=== PATIENT | female | born 1950 | race Caucasian/White ===

== ENCOUNTER 2017-03-21 17:43 | Inpatient (IN) | payer MEDICARE ==
[~2017-03-21] VITALS: Ht 177.8 cm; Wt 67.3 kg
[2017-03-21] MEDS ORDERED: IV NORMAL SALINE 1,000ML 1,000 ML IV ONE (19:00)
[2017-03-21] MEDS ORDERED: 0.9 % SODIUM CHLORIDE 10 ML DISP.SYRIN. IV PRN (19:00)
[2017-03-21 19:51] LABS: BASO # 0.1 x10^3/uL (0.0-0.2); BASO % 1 % (0-3); EOS % 0 % (0-3); HEMOGLOBIN 17.2 g/dL (12.0-15.5); LYMPH # 2.6 x10^3/uL (1.0-4.8); LYMPH % 24 % (24-48); MEAN CORPUSCULAR HEMOGLOBIN 29 pg (25-35); MEAN CORPUSCULAR HGB CONC 32 g/dL (31-37); MEAN CORPUSCULAR VOLUME 88 fL (79-100); MONO # 0.7 x10^3/uL (0.0-1.1); MONO % 6 % (0-9); NEUT # 7.8 x10^3uL (1.8-7.7); NEUT % 69 % (31-73); PLATELET COUNT 268 x10^3/uL (140-400); RED BLOOD COUNT 6.03 x10^6/uL (3.50-5.40); RED CELL DISTRIBUTION WIDTH 13.8 % (11.5-14.5); WHITE BLOOD COUNT 11.2 x10^3/uL (4.0-11.0)
[2017-03-21 19:56] LABS: ALBUMIN 3.6 g/dL (3.4-5.0); ALBUMIN/GLOBULIN RATIO 0.7 (1.0-1.7); CALCIUM 10.1 mg/dL (8.5-10.1); CREATININE 1.4 mg/dL (0.6-1.0); GFR 37.9; POTASSIUM 3.7 mmol/L (3.5-5.1); TOTAL BILIRUBIN 0.5 mg/dL (0.2-1.0); TOTAL PROTEIN 8.6 g/dL (6.4-8.2)
[2017-03-21] MEDS ORDERED: IV NORMAL SALINE 50ML 50 ML ONE (20:20)
[2017-03-21] MEDS ORDERED: cefTRIAXone SODIUM 1 GM VIAL IV ONE (20:20)
[2017-03-21] MEDS ORDERED: IV NORMAL SALINE 500ML 500 ML ONE (20:28)
[2017-03-21 20:30] LABS: BILIRUBIN,URINE NEG (NEG); CLARITY,URINE CLEAR; COLOR,URINE YELLOW; GLUCOSE,URINE 100 mg/dL (NEG); NITRITE,URINE NEG (NEG); UROBILINOGEN,URINE 1 mg/dL (0.2 mg/dL)
[2017-03-21 20:31] LABS: AMORPHOUS SEDIMENT,UR PRESENT /HPF; BACTERIA,URINE 0 /HPF (0-FEW); HYALINE CASTS, URINE OCC /HPF; RBC,URINE 0 /HPF (0-2); WBC,URINE OCC /HPF (0-4)
[2017-03-21] MEDS ORDERED: ONDANSETRON PF 4 MG/2 ML VIAL. IV PRN (22:30)
[2017-03-21 23:50] VITALS: BP 156/110
--- NOTE | 2017-03-22 01:09 | PHYS DOC ---
Past History Past Medical History: CVA, Dementia, Depression, Diabetes, High Cholesterol, Hypertension, Other Past Surgical History: Hysterectomy, Other Alcohol Use: None Drug Use: None Adult General Chief Complaint Chief Complaint: NEURO SYMPTOMS/DEFICITS HPI HPI Roula's history is limited due to cognitive impairment status post CVA as well as current local condition. Her history mostly comes from her son and daughter- in-law. She lives with her son and frlkhoey-kv-dnl. Her chekoyja-rs-vbm is the primary caregiver. Her daughter is the DPOA Patient is a 66 year old F who presents with decreased verbal responsiveness as well as generalized weakness starting last night. The biggest reason she came to the emergency room tonight is that she was unable to stand and has not been verbally responsive since last night which is a change from her baseline. She was recently treated for urinary tract infection however she has finished her antibiotics. Her [id number] states that she has been urinating frequently. Her son states that she has had no other associated symptoms. She did have improvement in her verbal responsiveness, returning back to baseline according to her son, without any intervention. Review of Systems Review of Systems Constitutional: Denies fever or chills [] Eyes: Denies change in visual acuity, redness, or eye pain [] HENT: Denies nasal congestion or sore throat [] Respiratory: Denies cough or shortness of breath [] Cardiovascular: No additional information not addressed in HPI [] GI: Denies abdominal pain, nausea, vomiting, bloody stools or diarrhea [] : Denies dysuria or hematuria [] Musculoskeletal: Denies back pain or joint pain [] Integument: Denies rash or skin lesions [] Neurologic: Denies headache, focal weakness or sensory changes [] Endocrine: Denies polyuria or polydipsia [] Roula did answer most questions with yes or no or head nods. It's unclear how accurate this review of systems was given her cognitive impairment and current condition. Family History Family History Noncontributory Current Medications Current Medications Current Medications Medications (Trade) Dose Ordered Sig/Zafar Start Time Stop Time Status Last Admin Dose Admin Ceftriaxone Sodium 1 gm/ Sodium Chloride 50 ml @ 100 mls/hr 1X ONCE 03/21/17 20:15 03/21/17 20:44 DC 03/21/17 20:15 100 MLS/HR Ceftriaxone Sodium (Rocephin) 1 gm STK-MED ONCE 03/21/17 20:20 03/21/17 20:21 DC Sodium Chloride 500 ml @ As Directed STK-MED ONCE 03/21/17 20:28 03/21/17 20:29 DC Sodium Chloride (Normal Saline Flush) 10 ml QSHIFT PRN 03/21/17 19:00 Allergies Allergies Allergies Coded Allergies Type Severity Reaction Last Updated Verified No Known Drug Allergies 03/21/17 No Physical Exam Physical Exam Constitutional: Well developed, well nourished, no acute distress, non-toxic appearance. [] HENT: atraumatic, bilateral external ears normal, dry mucous membranes Eyes: PERRLA, conjunctiva normal, no discharge. [] Neck: Normal range of motion, no tenderness, supple, no stridor. [] Cardiovascular:Heart rate regular rhythm, Lungs & Thorax: Bilateral breath sounds clear to auscultation [] Abdomen: Bowel sounds normal, soft, no tenderness, no masses, no pulsatile masses. [] Skin: Warm, dry, no erythema, no rash. [] Back: No tenderness, no CVA tenderness. [] Extremities: No tenderness, no cyanosis, no clubbing, ROM intact, no edema. [] Neurologic: Exam was limited due to cognitive impairment. She was unable to stand or lift either leg however she was noted to be moving all extremities during her evaluation. She was able to sit up with minimal assistance however she was not able to sit up for longer than a few seconds to a minute. It's unclear if her sensation is normal as her responses aren't consistent. She was alert but not oriented Psychologic: Limited due to cognitive impairment and current medical condition Current Patient Data Vital Signs Vital Signs Date Time Temp Pulse Resp B/P (MAP) Pulse Ox O2 Delivery O2 Flow Rate FiO2 03/21/17 17:43 98.2 112 10 96 Room Air Lab Results Laboratory Tests Test 03/21/17 19:00 03/21/17 23:58 White Blood Count 11.2 x10^3/uL (4.0-11.0) H Red Blood Count 6.03 x10^6/uL (3.50-5.40) H Hemoglobin 17.2 g/dL (12.0-15.5) H Hematocrit 53.0 % (36.0-47.0) H Mean Corpuscular Volume 88 fL (79-100) Mean Corpuscular Hemoglobin 29 pg (25-35) Mean Corpuscular Hemoglobin Concent 32 g/dL (31-37) Red Cell Distribution Width 13.8 % (11.5-14.5) Platelet Count 268 x10^3/uL (140-400) Neutrophils (%) (Auto) 69 % (31-73) Lymphocytes (%) (Auto) 24 % (24-48) Monocytes (%) (Auto) 6 % (0-9) Eosinophils (%) (Auto) 0 % (0-3) Basophils (%) (Auto) 1 % (0-3) Neutrophils # (Auto) 7.8 x10^3uL (1.8-7.7) H Lymphocytes # (Auto) 2.6 x10^3/uL (1.0-4.8) Monocytes # (Auto) 0.7 x10^3/uL (0.0-1.1) Eosinophils # (Auto) 0.0 x10^3/uL (0.0-0.7) Basophils # (Auto) 0.1 x10^3/uL (0.0-0.2) Urine Collection Type U cath Urine Color Yellow Urine Clarity Clear Urine pH 5.0 Urine Specific [place] 1.025 Urine Protein 100 mg/dl (NEG-TRACE) Urine Glucose (UA) 100 mg/dL (NEG) Urine Ketones (Stick) Neg mg/dL (NEG) Urine Blood Neg (NEG) Urine Nitrite Neg (NEG) Urine Bilirubin Neg (NEG) Urine Urobilinogen Dipstick 1 mg/dL (0.2 mg/dL) Urine Leukocyte Esterase Neg (NEG) Urine RBC 0 /HPF (0-2) Urine WBC Occ /HPF (0-4) Urine Squamous Epithelial Cells None /LPF Urine Amorphous Sediment Present /HPF Urine Bacteria 0 /HPF (0-FEW) Urine Hyaline Casts Occ /HPF Sodium Level 146 mmol/L (136-145) H Potassium Level 3.7 mmol/L (3.5-5.1) Chloride Level 107 mmol/L (98-107) Carbon Dioxide Level 30 mmol/L (21-32) Anion Gap 9 (6-14) Blood Urea Nitrogen 30 mg/dL (7-20) H Creatinine 1.4 mg/dL (0.6-1.0) H Estimated GFR (Cockcroft-Gault) 37.9 BUN/Creatinine Ratio 21 (6-20) H Glucose Level 311 mg/dL (70-99) H Lactic Acid Level 2.2 mmol/L (0.4-2.0) H Calcium Level 10.1 mg/dL (8.5-10.1) Total Bilirubin 0.5 mg/dL (0.2-1.0) Aspartate Amino Transferase (AST) 18 U/L (15-37) Alanine Aminotransferase (ALT) 20 U/L (14-59) Alkaline Phosphatase 74 U/L (46-116) Total Protein 8.6 g/dL (6.4-8.2) H Albumin 3.6 g/dL (3.4-5.0) Albumin/Globulin Ratio 0.7 (1.0-1.7) L Glucose (Fingerstick) 190 mg/dL (70-99) H EKG EKG [] Radiology/Procedures Radiology/Procedures [] Course & Med Decision Making Course & Med Decision Making Pertinent Labs and Imaging studies reviewed. (See chart for details) Based on her heart rate, elevated lactic acid and elevated white blood cell count she was given a dose of Rocephin prior to the results of her urinalysis for presumed urinary tract infection. Blood cultures were obtained and are pending. Dr. Palcaio was contacted by phone and did accept her care for inpatient management. Dragon Disclaimer Dragon Disclaimer This chart was dictated in whole or in part using Voice Recognition software in a busy, high-work load, and often noisy Emergency Department environment. It may contain unintended and wholly unrecognized errors or omissions. Departure Departure: Impression: Primary Impression: Dehydration Additional Impression: Acute kidney injury Disposition: 09 ADMITTED INPATIENT Condition: STABLE Referrals: KAYLAH ROBERTSON MD (PCP) Problem Qualifiers KAYLAH NASH MD Mar 22, 2017 01:09
[2017-03-22] MEDS ORDERED: PNEUMOCOCCAL VAX SCREEN. MC ONE (01:30)
[2017-03-22] MEDS ORDERED: ATOR40TA59 PO (02:03)
[2017-03-22] MEDS ORDERED: HUM100VI5 SQ (02:03)
[2017-03-22] MEDS ORDERED: PARO20TA3 PO (02:03)
[2017-03-22] MEDS ORDERED: CLON0.1T PO (02:03)
[2017-03-22] MEDS ORDERED: DONE10TA7 PO (02:03)
[2017-03-22] MEDS ORDERED: ACYC400T PO (02:03)
[2017-03-22] MEDS ORDERED: AMLO10TA2 PO (02:03)
[2017-03-22 05:00] VITALS: BP 154/100
[2017-03-22 06:46] LABS: BASO # 0.1 x10^3/uL (0.0-0.2); BASO % 1 % (0-3); EOS # 0.1 x10^3/uL (0.0-0.7); EOS % 1 % (0-3); HEMATOCRIT 45.4 % (36.0-47.0); HEMOGLOBIN 14.7 g/dL (12.0-15.5); LYMPH # 3.7 x10^3/uL (1.0-4.8); LYMPH % 33 % (24-48); MEAN CORPUSCULAR HEMOGLOBIN 29 pg (25-35); MEAN CORPUSCULAR HGB CONC 32 g/dL (31-37); MEAN CORPUSCULAR VOLUME 88 fL (79-100); MONO # 0.7 x10^3/uL (0.0-1.1); MONO % 6 % (0-9); NEUT # 6.7 x10^3uL (1.8-7.7); NEUT % 60 % (31-73); PLATELET COUNT 213 x10^3/uL (140-400); RED BLOOD COUNT 5.14 x10^6/uL (3.50-5.40); WHITE BLOOD COUNT 11.2 x10^3/uL (4.0-11.0)
[2017-03-22 07:04] LABS: CALCIUM 9.1 mg/dL (8.5-10.1); CREATININE 1.1 mg/dL (0.6-1.0); POTASSIUM 3.4 mmol/L (3.5-5.1)
[2017-03-22] MEDS ORDERED: INSU300I SQ (07:05)
--- NOTE | 2017-03-22 08:21 | RAD ---
Examination: Single frontal view the chest History: History of cough Comparison: None available Findings: The cardiomediastinal silhouette grossly appears unremarkable. There is no acute infiltrate or visualized pneumothorax. Impression: No acute cardiopulmonary findings.
[2017-03-22] MEDS ORDERED: PNEUMOC CONJ VACC 23-VALENT 0.5 ML VIAL. VAX IM ONE (09:00)
[2017-03-22] MEDS ORDERED: cloNIDine HCL 0.1 MG TABLET PO PRN (09:45)
[2017-03-22 10:47] VITALS: BP 119/81
[2017-03-22] MEDS: amLODIPine BESYLATE 10 MG TABLET PO SCH (10:48)
[2017-03-22] MEDS: PARoxetine 20 MG TABLET PO SCH (10:49)
[2017-03-22] MEDS: POTASSIUM CHLORIDE 30 MEQ in IV 1/2 NORMAL SALINE 1,000 ML IV SCH ×2 (10:49→23:32)
[2017-03-22] MEDS ORDERED: INSULN ASP PRT/INSULIN ASPART 300 UNITS/3 ML INSULN.PEN. SQ SCH (11:30)
[2017-03-22] MEDS ORDERED: FLU VACC QS2017-18 (36MOS+)/PF 0.5 ML SYRINGE. VAX IM ONE (13:00)
[2017-03-22] MEDS ORDERED: ACETAMINOPHEN 500 MG TABLET PO PRN (16:45)
[2017-03-22] MEDS: INSULN ASP PRT/INSULIN ASPART 300 UNITS/3 ML INSULN.PEN. SQ SCH (16:59)
--- NOTE | 2017-03-22 18:32 | RAD ---
CT brain without contrast. HISTORY: History of stroke, concern for CVA CT scan of brain was done without contrast. There is no intracranial hemorrhage or subdural hematoma. Ventricles are mildly dilated. There is extensive decreased density in the periventricular white matter possibly chronic microvascular disease. A focal CVA is not identified. MRI could be of benefit. There is no mass or shift of the midline. There is some mucosal thickening in the left maxillary sinus. IMPRESSION: 1. Extensive decreased density in the white matter. 2. No intracranial hemorrhage or mass noted. 3. A CVA is not identified. 4. Mild ventricular dilatation. PQRS Compliance Statement: One or more of the following individualized dose reduction techniques were utilized for this examination: 1. Automated exposure control 2. Adjustment of the mA and/or kV according to patient size 3. Use of iterative reconstruction technique Electronically signed by: Wesley Baez MD (03/22/2017 6:28 PM) [facility]
--- NOTE | 2017-03-22 19:04 | HP ---
ADMIT DATE: 03/21/2017 HISTORY OF PRESENT ILLNESS: A 66-year-old female. She has had a history of stroke. The patient basically has decreased verbal responsiveness as well as generalized weakness. The patient not eating or drinking very well, although there is some indication she might have been on increased fluids, but her labs look like she is very dehydrated in terms of her elevated concentration of red blood cells. The patient has become more lethargic and more unresponsive here in the last week or so. PAST MEDICAL HISTORY: CVA, dementia, depression, diabetes, hypercholesterolemia, hypertension, subaortic membrane heart murmur, requires bacterial endocarditis prophylaxis, other CVAs in October 2014. ALLERGIES: BYETTA. PAST SURGICAL HISTORY: The patient has had tubal ligation, carpal tunnel, and removed three knuckles from her right hand for arthritis. FAMILY HISTORY: Father , unknown causes. Mother with heart disease and diabetes. She has brothers and sisters with cancer, lymphoma. SOCIAL HISTORY: There is no history of smoking, alcohol, or drug use. The patient unable to give a history REVIEW OF SYSTEMS: As noted there. PHYSICAL EXAMINATION: GENERAL: This is a white female looking much older than stated age, who is markedly weakened, decrepit. VITAL SIGNS: Blood pressure 120/80, respiratory rate 20, pulse 93, afebrile. HEENT: The patient's head was atraumatic, normocephalic. Poor dentition noted. Eyes were PERRLA. NEUROLOGIC: EOMI. Poor response to questions. NECK: Supple without JVD or carotid bruits. LUNGS: Diminished throughout, poor movement of air. CARDIOVASCULAR: Regular sinus rhythm, S1, S2. ABDOMEN: Soft, nontender. EXTREMITIES: No clubbing, cyanosis, or edema. NEUROLOGIC: The patient is alert but not oriented to place, self, or time. LABORATORY DATA: Labs initially showed white count of 11, hemoglobin of 17. A day later, hemoglobin has come down from 17 to 14. Creatinine has come down from 1.4 to 1.1 and BUN from 30 down to 26. Sodium 146, potassium slightly low at 3.4, blood sugars in the 190s-200s. Did have a positive lactic acid of 2.2. Received Rocephin 1 g IV. Urine negative. Chest x-ray negative. No obvious signs of infection. We will continue with the IV Rocephin now. IMPRESSION: Change in mental status, possible encephalopathy secondary to diabetes, marked lethargy, type 2 diabetes, dehydration, and acute renal failure. Continue with hydration. CT scan scheduled. Start PT/OT and make further evaluation along those lines. KAYLAH ROBERTSON MD DR: ALECIA/yuriy JOB#: [id number] / [id number]
[2017-03-22 19:22] VITALS: BP 117/79
[2017-03-22] MEDS: DONEPEZIL HCL 10 MG TABLET PO SCH (20:17)
[2017-03-22] MEDS: INSULIN DETEMIR 300 UNITS/3 ML INSULN.PEN. SQ SCH (20:26)
[2017-03-22 23:16] VITALS: BP 147/68
[2017-03-23 04:55] VITALS: BP 147/68
[2017-03-23 07:08] LABS: BASO % 0 % (0-3); EOS # 0.2 x10^3/uL (0.0-0.7); EOS % 1 % (0-3); HEMATOCRIT 39.2 % (36.0-47.0); LYMPH # 4.1 x10^3/uL (1.0-4.8); LYMPH % 36 % (24-48); MEAN CORPUSCULAR HEMOGLOBIN 29 pg (25-35); MEAN CORPUSCULAR HGB CONC 33 g/dL (31-37); MEAN CORPUSCULAR VOLUME 87 fL (79-100); MONO # 0.6 x10^3/uL (0.0-1.1); MONO % 6 % (0-9); NEUT # 6.4 x10^3uL (1.8-7.7); NEUT % 57 % (31-73); PLATELET COUNT 194 x10^3/uL (140-400); RED BLOOD COUNT 4.53 x10^6/uL (3.50-5.40); RED CELL DISTRIBUTION WIDTH 13.2 % (11.5-14.5); WHITE BLOOD COUNT 11.4 x10^3/uL (4.0-11.0)
[2017-03-23 07:19] LABS: CALCIUM 8.6 mg/dL (8.5-10.1); CREATININE 0.8 mg/dL (0.6-1.0); GFR 72.2
[2017-03-23] MEDS: PARoxetine 20 MG TABLET PO SCH (09:00)
[2017-03-23] MEDS: amLODIPine BESYLATE 10 MG TABLET PO SCH (09:00)
[2017-03-23] MEDS ORDERED: ACETAMINOPHEN 325 MG TABLET PO PRN (09:15)
[2017-03-23 10:34] VITALS: BP 113/84
[2017-03-23] MEDS: POTASSIUM CHLORIDE 20 MEQ TABLET.ER. PO SCH ×2 (12:22→17:24)
[2017-03-23] MEDS: INSULN ASP PRT/INSULIN ASPART 300 UNITS/3 ML INSULN.PEN. SQ SCH ×2 (12:26→16:30)
[2017-03-23 15:17] VITALS: BP 136/74
[2017-03-23] MEDS: INSULIN DETEMIR 300 UNITS/3 ML INSULN.PEN. SQ SCH (17:26)
[2017-03-23 19:24] VITALS: BP 129/86
[2017-03-23] MEDS: DONEPEZIL HCL 10 MG TABLET PO SCH (20:38)
[2017-03-23] MEDS: LACTOBACILLUS ACIDOPH & BULGAR 1 TABLET. PO SCH (20:38)
[2017-03-23 22:29] VITALS: BP 148/94
[2017-03-24 05:57] VITALS: BP 123/87
[2017-03-24] MEDS: POTASSIUM CHLORIDE 20 MEQ TABLET.ER. PO SCH ×2 (08:16→17:52)
[2017-03-24] MEDS: PARoxetine 20 MG TABLET PO SCH (08:16)
[2017-03-24] MEDS: LACTOBACILLUS ACIDOPH & BULGAR 1 TABLET. PO SCH ×2 (08:16→21:39)
[2017-03-24] MEDS: amLODIPine BESYLATE 10 MG TABLET PO SCH (08:17)
[2017-03-24 10:33] VITALS: BP 109/77
[2017-03-24] MEDS ORDERED: DEXTROSE 50% 25 GM / 50ML DISP.SYRIN. IV PRN (10:45)
[2017-03-24] MEDS: INSULIN ASPART 300 UNITS/3 ML INSULN.PEN SQ SCH ×3 (12:34→21:46)
[2017-03-24] MEDS: INSULN ASP PRT/INSULIN ASPART 300 UNITS/3 ML INSULN.PEN. SQ SCH ×2 (12:35→17:47)
[2017-03-24 15:10] VITALS: BP 106/73
[2017-03-24] MEDS ORDERED: INSULIN ASPART 300 UNITS/3 ML INSULN.PEN SQ ONE (17:45)
[2017-03-24 19:46] VITALS: BP 101/53
[2017-03-24] MEDS: DONEPEZIL HCL 10 MG TABLET PO SCH (21:39)
[2017-03-24] MEDS: INSULIN DETEMIR 300 UNITS/3 ML INSULN.PEN. SQ SCH (21:46)
[2017-03-24 23:51] VITALS: BP 111/72
--- NOTE | 2017-03-25 01:38 | PN ---
DATE: A 66-year-old female in with change in mental status. The patient is resting fairly comfortably making fairly good progress. Seems to be a little bit more alert, but still very confused and does not seem to be making much sense, but this may be baseline for her. The patient otherwise showed hemoglobin from 17 down to 13 showing significant degree of dehydration. We have adjusted her sliding scale to bring her sugars down as well. Blood pressure 110/70, respiratory rate 20, pulse 70 to 90. The patient is alert, but confused, not able to answer questions very well overall. Otherwise, the patient seems to be making good progress as far as her baseline goes and will continue to be monitored on this. Continue with PT, OT. Family to decide where they want her taken after hospitalization as the patient obviously is in no situation to take care of herself. IMPRESSION: Change in mental status, Alzheimer disease. KAYLAH ROBERTSON MD DR: ALECIA/yuriy JOB#: [id number] / [id number]
[2017-03-25 05:09] VITALS: BP 122/88
[2017-03-25] MEDS: INSULIN ASPART 300 UNITS/3 ML INSULN.PEN SQ SCH ×4 (07:30→20:38)
[2017-03-25] MEDS: amLODIPine BESYLATE 10 MG TABLET PO SCH (09:00)
[2017-03-25] MEDS: POTASSIUM CHLORIDE 20 MEQ TABLET.ER. PO SCH ×2 (09:00→17:19)
[2017-03-25] MEDS: LACTOBACILLUS ACIDOPH & BULGAR 1 TABLET. PO SCH ×2 (09:00→20:37)
[2017-03-25] MEDS: PARoxetine 20 MG TABLET PO SCH (09:00)
[2017-03-25 10:55] VITALS: BP 115/77
[2017-03-25] MEDS: INSULN ASP PRT/INSULIN ASPART 300 UNITS/3 ML INSULN.PEN. SQ SCH ×2 (12:28→17:17)
[2017-03-25] MEDS ORDERED: INSULIN ASPART 300 UNITS/3 ML INSULN.PEN SQ ONE (12:30)
[2017-03-25 15:22] VITALS: BP 112/79
[2017-03-25 19:52] VITALS: BP 104/72
[2017-03-25] MEDS: DONEPEZIL HCL 10 MG TABLET PO SCH (20:37)
[2017-03-25] MEDS: INSULIN DETEMIR 300 UNITS/3 ML INSULN.PEN. SQ SCH (20:39)
[2017-03-25 23:07] VITALS: BP 113/77
[2017-03-26 06:13] VITALS: BP 123/88
[2017-03-26 06:42] LABS: BASO % 0 % (0-3); EOS # 0.1 x10^3/uL (0.0-0.7); EOS % 1 % (0-3); HEMATOCRIT 43.5 % (36.0-47.0); HEMOGLOBIN 14.6 g/dL (12.0-15.5); LYMPH # 4.1 x10^3/uL (1.0-4.8); LYMPH % 32 % (24-48); MEAN CORPUSCULAR HEMOGLOBIN 29 pg (25-35); MEAN CORPUSCULAR HGB CONC 34 g/dL (31-37); MEAN CORPUSCULAR VOLUME 86 fL (79-100); MONO % 8 % (0-9); NEUT # 7.3 x10^3uL (1.8-7.7); NEUT % 58 % (31-73); PLATELET COUNT 243 x10^3/uL (140-400); RED BLOOD COUNT 5.04 x10^6/uL (3.50-5.40); RED CELL DISTRIBUTION WIDTH 13.6 % (11.5-14.5); WHITE BLOOD COUNT 12.6 x10^3/uL (4.0-11.0)
[2017-03-26 06:51] LABS: CREATININE 0.9 mg/dL (0.6-1.0); POTASSIUM 4.1 mmol/L (3.5-5.1)
[2017-03-26] MEDS: INSULIN ASPART 300 UNITS/3 ML INSULN.PEN SQ SCH (07:30)
[2017-03-26] MEDS ORDERED: ACET325T9 PO (07:53)
[2017-03-26] MEDS ORDERED: INSU100I17 SQ (07:53)
[2017-03-26] MEDS ORDERED: ACID1TAB14 PO (07:53)
[2017-03-26] MEDS ORDERED: POTA20TA4 PO (07:53)
[2017-03-26 07:54] VITALS: BP 123/88
[2017-03-26] MEDS: POTASSIUM CHLORIDE 20 MEQ TABLET.ER. PO SCH (07:54)
[2017-03-26] MEDS: amLODIPine BESYLATE 10 MG TABLET PO SCH (07:54)
[2017-03-26] MEDS: LACTOBACILLUS ACIDOPH & BULGAR 1 TABLET. PO SCH (07:55)
[2017-03-26] MEDS: PARoxetine 20 MG TABLET PO SCH (07:55)
--- NOTE | 2017-03-26 12:11 | DS ---
DATE OF DISCHARGE: 03/26/2017 INDICATIONS: The patient is a 66-year-old female in with multiple medical problems, apparently family is still trying to decide what to do with her. The patient has change in mental status, markedly confused, disoriented. The patient otherwise seems to be resting fairly comfortably and will make further evaluation on her as indicated, trying to get her transferred either to a nursing facility or further evaluation on her as indicated. PHYSICAL EXAMINATION: VITAL SIGNS: The patient's blood pressure 120/80, respiration 16, pulse 70 up to 123, afebrile. The patient is a DNR. LUNGS: Clear. CARDIOVASCULAR: Regular sinus rhythm/ ABDOMEN: Soft, diffuse tenderness, no rebound or guarding. Positive bowel sounds, no hepatosplenomegaly noted. EXTREMITIES: No clubbing, cyanosis, or edema. NEUROLOGIC: The patient is confused. She is alert, but markedly confused and disoriented. IMPRESSION: Change in mental status, Alzheimer disease, failure to thrive. KAYLAH ROBERTSON MD DR: ALECIA/yuriy JOB#: [id number] / [id number]
--- NOTE | 2017-03-26 22:38 | DS ---
DATE OF DISCHARGE: 03/26/2017 HOSPITAL COURSE: The patient is a 66-year-old female came in with change in mental status, resting fairly comfortable. The patient is alert, but markedly confused, paucity of words, not really able to answer questions or follow commands. The patient does make good eye contact, but other than that, the patient has to be fed. She lies pretty much in bed. ( ) ADLs. blood pressure 120/88, respiratory rate 20, pulse 100, afebrile. The patient is alert but as noted above. Just tracks with her eyes, but really does not have much to say. Lungs are diminished but clear. CV exam is stable. The patient will be discharged to a nursing facility today. IMPRESSION: Change in mental status, dehydration, type 2 diabetes. PLAN: As above, to be discharged to [facility]. See MRAD. ACTIVITY: As tolerated. DIET: As tolerated as well. KAYLAH ROBERTSON MD DR: ALECIA/yuriy JOB#: [id number] / [id number]
== END 2017-03-26 10:17 | DRG 684 ==
LOC: ER 17:43 → 1 SOUTH 21:20
PROVIDERS: ADMIT Family Medicine; ATTEND Family Medicine
DX: N17.9 Acute kidney failure, unspecified (principal); G30.9 Alzheimer's disease, unspecified; F02.80 Dementia in other diseases classified elsewhere, unspecified severity, without behavioral disturbance, psychotic disturbance, mood disturbance, and anxiety; E11.9 Type 2 diabetes mellitus without complications; E86.0 Dehydration; F32.9 Major depressive disorder, single episode, unspecified; M19.90 Unspecified osteoarthritis, unspecified site; I10 Essential (primary) hypertension; E78.00 Pure hypercholesterolemia, unspecified; R62.7 Adult failure to thrive; Z66 Do not resuscitate; I69.319 Unspecified symptoms and signs involving cognitive functions following cerebral infarction; Z80.7 Family history of other malignant neoplasms of lymphoid, hematopoietic and related tissues; Z82.49 Family history of ischemic heart disease and other diseases of the circulatory system; Z83.3 Family history of diabetes mellitus; Z87.440 Personal history of urinary (tract) infections; Z90.710 Acquired absence of both cervix and uterus; Z98.51 Tubal ligation status
CPT/HCPCS: 36415; 51701; 70450; 71010; 80048; 80053; 81001; 82607; 82947; 83605; 84443; 85025; 87040; 90686; 90732; 96361; 96365; 96366; 97163; J0696; J1815; J7030; 97110; 97112; 97116; 97530; 99285-25

== ENCOUNTER 2017-08-25 21:34 | Inpatient (IN) | payer MEDICARE ==
[~2017-08-25] VITALS: Ht 167.6 cm; Wt 71.2 kg
[~2017-08-25 21:34] MED LIST: ACET325T9 PO; ACID1TAB14 PO; ACYC400T PO; AMLO10TA2 PO; ATOR40TA59 PO; CLON0.1T PO; DONE10TA7 PO; HUM100VI5 SQ; INSU100I17 SQ; INSU300I SQ; PARO20TA3 PO; POTA20TA4 PO
--- NOTE | 2017-08-25 23:21 | RAD ---
CT head without contrast COMPARISON: CT head March 22, 2017. HISTORY: Trauma, confusion, lethargy. TECHNIQUE: [address] imaging skull base to vertex was acquired. FINDINGS: Generalized brain atrophy is stable. Extensive cerebral white matter hypoattenuation is stable likely changes of chronic microvascular ischemic disease. No intracranial hemorrhage, mass, hydrocephalus or infarction. No acute ischemic changes evident. Orbits, mastoids, paranasal sinuses and bones are unremarkable. IMPRESSION: No acute intracranial CT abnormality. Stable exam. Exposure: One or more of the following individualized dose reduction techniques were utilized for this examination: 1. Automated exposure control 2. Adjustment of the mA and/or kV according to patient size 3. Use of iterative reconstruction technique Electronically signed by: Odell Pastrana MD (08/25/2017 11:18 PM) [facility]
--- NOTE | 2017-08-25 23:55 | ED.ADGEN ---
Past History Past Medical History: CVA, Dementia, Depression, Diabetes, High Cholesterol, Hypertension, Other Past Surgical History: Hysterectomy, Other Alcohol Use: None Drug Use: None Adult General Chief Complaint Chief Complaint unwitnessed fall HPI HPI Patient is a 67-year-old snf patient with history of dementia, CVA, hypertension who presents from snf facility with unwitnessed fall. There is no stated complaint or injury. However, the patient does not recall the cause of fall. On exam, patient is stable vital signs does not appear to be in any distress on ED arrival. History is limited due to the patient's memory impairment.[] Review of Systems Review of Systems Review symptoms limited due to the presence of dementia. All other systems were reviewed and found to be within normal limits, except as documented in this note. Current Medications Current Medications Current Medications Medications (Trade) Dose Ordered Sig/Zafar Start Time Stop Time Status Last Admin Dose Admin Sodium Chloride 1,000 ml @ 1,000 mls/hr 1X ONCE 08/26/17 00:45 08/26/17 01:44 UNV Allergies Allergies Allergies Coded Allergies Type Severity Reaction Last Updated Verified No Known Drug Allergies 03/21/17 No Physical Exam Physical Exam Constitutional:No acute distress, blank stare, flat affect. [] HENT: Normocephalic, atraumatic, bilateral external ears normal, oropharynx moist, no oral exudates, nose normal. [] Eyes: PERRLA, EOMI, conjunctiva normal. [] Neck: Normal range of motion, no bony tenderness. [] Cardiovascular:Heart rate regular rhythm, no murmur [] Lungs & Thorax: Bilateral breath sounds clear to auscultation [] Abdomen: Bowel sounds normal, soft, no tenderness. [] Skin: Warm, dry. [] Back: No tenderness. [] Extremities: Right shoulder pain, tenderness swelling, limited range of motion secondary to pain, no gross deformities of remaining right upper extremity, left upper extremity, bilateral extremities, no former days, no pain range of motion.[] Neurologic: Alert, no gross motor weakness[) Current Patient Data Lab Results Laboratory Tests Test 08/25/17 23:30 08/25/17 23:35 Urine Collection Type U cath Urine Color Yellow Urine Clarity Clear Urine pH 7.0 Urine Specific [place] 1.015 Urine Protein 100 mg/dl (NEG-TRACE) Urine Glucose (UA) 250 mg/dL (NEG) Urine Ketones (Stick) Neg mg/dL (NEG) Urine Blood Trace (NEG) Urine Nitrite Neg (NEG) Urine Bilirubin Neg (NEG) Urine Urobilinogen Dipstick 0.2 mg/dL (0.2 mg/dL) Urine Leukocyte Esterase Neg (NEG) Urine RBC 0 /HPF (0-2) Urine WBC Occ /HPF (0-4) Urine Squamous Epithelial Cells Occ /LPF Urine Bacteria Few /HPF (0-FEW) White Blood Count 22.8 x10^3/uL (4.0-11.0) H Red Blood Count 5.32 x10^6/uL (3.50-5.40) Hemoglobin 14.9 g/dL (12.0-15.5) Hematocrit 45.2 % (36.0-47.0) Mean Corpuscular Volume 85 fL (79-100) Mean Corpuscular Hemoglobin 28 pg (25-35) Mean Corpuscular Hemoglobin Concent 33 g/dL (31-37) Red Cell Distribution Width 13.8 % (11.5-14.5) Platelet Count 387 x10^3/uL (140-400) Neutrophils (%) (Auto) 75 % (31-73) H Lymphocytes (%) (Auto) 19 % (24-48) L Monocytes (%) (Auto) 6 % (0-9) Eosinophils (%) (Auto) 0 % (0-3) Basophils (%) (Auto) 0 % (0-3) Neutrophils # (Auto) 17.1 x10^3uL (1.8-7.7) H Lymphocytes # (Auto) 4.3 x10^3/uL (1.0-4.8) Monocytes # (Auto) 1.2 x10^3/uL (0.0-1.1) H Eosinophils # (Auto) 0.1 x10^3/uL (0.0-0.7) Basophils # (Auto) 0.1 x10^3/uL (0.0-0.2) Segmented Neutrophils % 73 % (35-66) H Band Neutrophils % 6 % (0-9) Lymphocytes % 16 % (24-48) L Monocytes % 5 % (0-10) Platelet Estimate Adequate (ADEQUATE) Sodium Level 138 mmol/L (136-145) Potassium Level 3.8 mmol/L (3.5-5.1) Chloride Level 96 mmol/L (98-107) L Carbon Dioxide Level 30 mmol/L (21-32) Anion Gap 12 (6-14) Blood Urea Nitrogen 26 mg/dL (7-20) H Creatinine 1.1 mg/dL (0.6-1.0) H Estimated GFR (Cockcroft-Gault) 49.8 BUN/Creatinine Ratio 24 (6-20) H Glucose Level 207 mg/dL (70-99) H Calcium Level 9.7 mg/dL (8.5-10.1) Total Bilirubin 0.2 mg/dL (0.2-1.0) Aspartate Amino Transferase (AST) 28 U/L (15-37) Alanine Aminotransferase (ALT) 38 U/L (14-59) Alkaline Phosphatase 129 U/L (46-116) H Total Protein 7.6 g/dL (6.4-8.2) Albumin 3.4 g/dL (3.4-5.0) Albumin/Globulin Ratio 0.8 (1.0-1.7) L EKG EKG [EKG: Sinus tach, rate 112, left atrial abnormality, left ventricular hypertrophy, inferior Q waves, no acute ST elevation, QTC 455. Interpretation by this physician.] Radiology/Procedures Radiology/Procedures [CT head: No acute renal injury per radiology report x-ray/right humerus/pelvis: Minimally displaced right humeral neck fracture Chest XR: Suspected aortic aneurysm, pulmonary vascular congestion, possible left lingular infiltrate on preliminary read] Course & Med Decision Making Course & Med Decision Making Pertinent Labs and Imaging studies reviewed. (See chart for details) [Unwitnessed fall with apparent right humeral neck fracture, non-operative. No other injury evident on exam. Lab work reviewed. Acute kidney and elevation of white count. No clinical course of infection, pressure sores, etc. Possible lingular infiltrate on CXR? Patient afebrile was stable vital signs. IV fluids given. Empiric abx given. Delay in staring medications given delay in obtaining labs and diagnostic Culture and serum lactate obtained. Will place and shoulder sling. I spoke with Dr. Silva who accepted care of the patient. Courtesy bridge orders provided.] Final Impression Final Impression 1. Right humeral neck fracture 2. Acute kidney injury 3. leukocytosis 4. Dementia Problems: Dragon Disclaimer Dragon Disclaimer This electronic medical record was generated, in whole or in part, using a voice recognition dictation system. TREVOR SULLIVAN DO Aug 25, 2017 23:55
[2017-08-26] VITALS (9 sets, daily range): BP systolic 125–183; BP diastolic 77–109
[2017-08-26 00:07] LABS: BASO # 0.1 x10^3/uL (0.0-0.2); BASO % 0 % (0-3); EOS # 0.1 x10^3/uL (0.0-0.7); EOS % 0 % (0-3); HEMATOCRIT 45.2 % (36.0-47.0); HEMOGLOBIN 14.9 g/dL (12.0-15.5); LYMPH # 4.3 x10^3/uL (1.0-4.8); LYMPH % 19 % (24-48); MEAN CORPUSCULAR HEMOGLOBIN 28 pg (25-35); MEAN CORPUSCULAR HGB CONC 33 g/dL (31-37); MEAN CORPUSCULAR VOLUME 85 fL (79-100); MONO # 1.2 x10^3/uL (0.0-1.1); MONO % 6 % (0-9); NEUT # 17.1 x10^3uL (1.8-7.7); NEUT % 75 % (31-73); PLATELET COUNT 387 x10^3/uL (140-400); RED BLOOD COUNT 5.32 x10^6/uL (3.50-5.40); RED CELL DISTRIBUTION WIDTH 13.8 % (11.5-14.5); WHITE BLOOD COUNT 22.8 x10^3/uL (4.0-11.0)
[2017-08-26 00:17] LABS: BACTERIA,URINE FEW /HPF (0-FEW); BILIRUBIN,URINE NEG (NEG); CLARITY,URINE CLEAR; COLOR,URINE YELLOW; GLUCOSE,URINE 250 mg/dL (NEG); NITRITE,URINE NEG (NEG); RBC,URINE 0 /HPF (0-2); SQUAMOUS EPITHELIAL CELL,UR OCC /LPF; UROBILINOGEN,URINE 0.2 mg/dL (0.2 mg/dL); WBC,URINE OCC /HPF (0-4)
[2017-08-26 00:19] LABS: ALBUMIN 3.4 g/dL (3.4-5.0); ALBUMIN/GLOBULIN RATIO 0.8 (1.0-1.7); CALCIUM 9.7 mg/dL (8.5-10.1); CREATININE 1.1 mg/dL (0.6-1.0); GFR 49.8; POTASSIUM 3.8 mmol/L (3.5-5.1); TOTAL BILIRUBIN 0.2 mg/dL (0.2-1.0); TOTAL PROTEIN 7.6 g/dL (6.4-8.2)
[2017-08-26 00:23] LABS: % BANDS 6 % (0-9); % LYMPHS 16 % (24-48); % MONOS 5 % (0-10); % SEGS 73 % (35-66); PLT ESTIMATE ADEQUATE (ADEQUATE)
--- NOTE | 2017-08-26 00:43 | EKG ---
[address] [address] Test Date: 2017-08-25 Test Time: 22:50:29 Pat Name: ZOE MARIE Department: Room: Gender: F Director Mobile: TRISTIN : 1950 Requested By: TREVOR SULLIVAN Order Number: [id number] Reading MD: Jimmie Ashraf MD Measurements Intervals [place] Rate: 112 P: 42 LA: 160 QRS: -19 QRSD: 72 T: 52 QT: 332 QTc: 455 Interpretive Statements SINUS TACHYCARDIA NON-SPECIFIC ST/T CHANGES Electronically Signed On 08-28-2017 14:14:24 CDT by Jimmie Ashraf MD
[2017-08-26] MEDS ORDERED: IV NORMAL SALINE 1,000ML 1,000 ML IV ONE (00:45)
[2017-08-26] MEDS ORDERED: AZITHROMYCIN 250 MG TABLET. PO ONE (01:00)
[2017-08-26] MEDS ORDERED: cefTRIAXone SODIUM 1 GM VIAL IV ONE (01:04)
[2017-08-26] MEDS ORDERED: IV NORMAL SALINE 50ML 50 ML ONE (01:09)
[2017-08-26] MEDS ORDERED: cefTRIAXone IV Push 1 GM VIAL. IVP ONE (01:15)
[2017-08-26] MEDS ORDERED: ACETAMINOPHEN 325 MG TABLET PO PRN ×2 (01:15→11:45)
[2017-08-26] MEDS ORDERED: ONDANSETRON PF 4 MG/2 ML VIAL. IV PRN (01:15)
[2017-08-26] MEDS ORDERED: cloNIDine HCL 0.1 MG TABLET PO ONE (01:15)
[2017-08-26] MEDS: IV NORMAL SALINE 1,000ML 1,000 ML IV SCH ×2 (02:35→23:29)
[2017-08-26] MEDS ORDERED: DOCU-109 PO (02:43)
[2017-08-26] MEDS ORDERED: INSU100I27 SQ (02:43)
[2017-08-26] MEDS ORDERED: INSU100I17 SQ (02:43)
[2017-08-26] MEDS ORDERED: MAGN400O7 PO (02:43)
[2017-08-26] MEDS ORDERED: POTA20TA4 PO (02:43)
[2017-08-26] MEDS ORDERED: TRAM50TA PO ×2 (02:43)
[2017-08-26] MEDS ORDERED: BISA10SU2 RC (02:43)
[2017-08-26] MEDS ORDERED: MULT-245 PO (02:43)
[2017-08-26] MEDS ORDERED: NYST15PO9 TP (02:43)
[2017-08-26 05:15] LABS: BASO % 0 % (0-3); EOS # 0.1 x10^3/uL (0.0-0.7); EOS % 0 % (0-3); HEMATOCRIT 41.8 % (36.0-47.0); HEMOGLOBIN 13.7 g/dL (12.0-15.5); LYMPH # 3.1 x10^3/uL (1.0-4.8); LYMPH % 19 % (24-48); MEAN CORPUSCULAR HEMOGLOBIN 28 pg (25-35); MEAN CORPUSCULAR HGB CONC 33 g/dL (31-37); MEAN CORPUSCULAR VOLUME 85 fL (79-100); MONO # 0.9 x10^3/uL (0.0-1.1); MONO % 5 % (0-9); NEUT # 12.4 x10^3uL (1.8-7.7); NEUT % 75 % (31-73); PLATELET COUNT 338 x10^3/uL (140-400); RED BLOOD COUNT 4.93 x10^6/uL (3.50-5.40); RED CELL DISTRIBUTION WIDTH 13.9 % (11.5-14.5); WHITE BLOOD COUNT 16.5 x10^3/uL (4.0-11.0)
[2017-08-26 05:23] LABS: CALCIUM 9.1 mg/dL (8.5-10.1); CREATININE 0.9 mg/dL (0.6-1.0); GFR 62.8; POTASSIUM 3.5 mmol/L (3.5-5.1)
[2017-08-26] MEDS: IPRATRPIUM/ALBUTEROL 0.5/2.5MG 3 ML NEBU. NEB SCH ×4 (06:09→21:21)
[2017-08-26] MEDS ORDERED: amLODIPine BESYLATE 10 MG TABLET ONE (06:22)
[2017-08-26] MEDS: amLODIPine BESYLATE 10 MG TABLET PO SCH (06:25)
--- NOTE | 2017-08-26 07:18 | RAD ---
Right humerus, 2 views, 08/25/2017: History: Trauma There is a fracture of the humeral neck with mild impaction at the fracture site. There are mild underlying degenerative changes at the glenohumeral articulation. The distal humerus is intact. IMPRESSION: Acute right humeral neck fracture. Pelvis, single view, 08/25/2017: History: Trauma There is patchy bony demineralization. There is an internal fixation device transfixing an old right hip fracture. There is mild residual medial displacement of a lesser trochanteric fracture fragment. Mild deformity of the right pubic bone appears to be old. No acute fracture or dislocation is identified. There are mild degenerative changes at the hip joints. IMPRESSION: 1. Demineralization. 2. Old right hip and right pubic bone fractures. 3. No acute bony abnormality is detected.
--- NOTE | 2017-08-26 07:55 | RAD ---
Portable chest, 08/25/2017: History: Chest pain, trauma Comparison is made to a study from 03/21/2017. The heart appears to be within normal limits in size. The pulmonary vascularity is normal. There is mild linear atelectasis in the lung bases. The upper lung gomez are clear. There is no evidence of pleural fluid or pneumothorax. The bony structures are demineralized. There are mild scattered degenerative changes in the spine and at both shoulders. An acute right humeral neck fracture is again noted, as described on the humeral radiographs. IMPRESSION: Mild bibasilar atelectasis
[2017-08-26] MEDS: traMADol 50 MG TABLET PO PRN ×3 (09:51→23:35)
[2017-08-26] MEDS ORDERED: NORMAL SALINE IV SCH (10:00)
[2017-08-26] MEDS ORDERED: AZITHROMYCIN IV SCH (10:00)
[2017-08-26] MEDS: AZITHROMYCIN 500 MG in IV NORMAL SALINE 250ML 250 ML IV SCH (10:21)
[2017-08-26] MEDS ORDERED: NYSTATIN TOPICAL POWDER 15GM BOTTLE. TP PRN (11:45)
[2017-08-26] MEDS: cefTRIAXone IV Push 1 GM VIAL. IVP SCH (11:52)
[2017-08-26] MEDS: INSULIN ASPART 300 UNITS/3 ML INSULN.PEN SQ SCH ×2 (12:02→17:03)
[2017-08-26] MEDS: HEPARIN PF for SUB-Q USE 5,000 UNIT/0.5 ML VIAL. SQ SCH ×2 (14:44→21:41)
[2017-08-26] MEDS: traMADol 50 MG TABLET PO SCH (17:03)
[2017-08-26] MEDS: LACTOBACILLUS RHAMNOSUS GG 1 CAPSULE. PO SCH (21:22)
[2017-08-26] MEDS: DONEPEZIL HCL 10 MG TABLET PO SCH (21:22)
[2017-08-26] MEDS: POTASSIUM CHLORIDE 20 MEQ TABLET.ER. PO SCH (21:23)
[2017-08-26] MEDS: INSULIN DETEMIR 300 UNITS/3 ML INSULN.PEN. SQ SCH (21:50)
--- NOTE | 2017-08-26 22:56 | HP ---
ADMIT DATE: 08/26/2017 HISTORY OF PRESENT ILLNESS: A 67-year-old female with a history of severe dementia and history of stroke so forth, now at the correction facility. She had an unwitnessed fall. The patient at the time did not have any complaint. However, on exam, the patient was brought in through the Emergency Room. The patient did have limited ability to describe what happened. In any case, she did have severe pain and she had an elevated white count. As a result of this, the patient was admitted to the hospital for further evaluation. Her white count was over 22,000. Now, the patient was admitted for IV fluids, antibiotics, and further workup. The patient also had a nondisplaced fracture of the right humerus. PAST MEDICAL HISTORY: That of a stroke, dementia, depression, diabetes, hypercholesterolemia, hypertension, and hysterectomy. ALLERGIES: The patient has no known allergies. FAMILY HISTORY: Noncontributory. SOCIAL HISTORY: No smoking, alcohol, or drug use. Now, lives at the correction. REVIEW OF SYSTEMS: The patient really not able to describe any particular type of problem and has paucity of the speech. PHYSICAL EXAMINATION: GENERAL: This is a pleasant white female in no apparent distress. VITAL SIGNS: The patient's blood pressure 168/80, pulse 112, respiratory rate 16. She is afebrile. Otherwise, she is alert. flat affect. HEENT: The head was atraumatic, normocephalic. The mouth and throat show poor dentition. NECK: Full range of motion. CARDIOVASCULAR: Regular sinus rhythm, somewhat tachycardic. LUNGS: Show decreased breath sounds, clear. ABDOMEN: Soft, nontender, no rebounding or guarding. Positive bowel sounds. No hepatosplenomegaly. SKIN: The patient's skin is warm and dry. EXTREMITIES: Without clubbing, cyanosis, or edema. The right shoulder did show tenderness, pain, and limited range of motion secondary to pain. NEUROLOGIC: As noted, alert but not able to really give much of a history because of her previous history of stroke. LABORATORY DATA: The patient's lab did show that elevated white count of 22,000. Otherwise, BUN and creatinine were slightly elevated at 26 and 1.1. Sodium and potassium were basically stable. The chest x-ray showed possibility of some pulmonary vascular congestion, lingular infiltrate, and emboli. The patient also had a nondisplaced fracture of the right proximal humerus. The patient was admitted for further evaluation and treatment. IMPRESSION: Leukocytosis, followed at correction, right humeral neck fracture. PLAN: The patient will be admitted, placed on IV antibiotic therapy and further evaluation of her fracture as well as her white count. Other tests are still pending at this time. KAYLAH ROBERTSON MD DR: ALECIA/yuriy JOB#: [id number] / [id number]
[2017-08-27] VITALS (7 sets, daily range): BP systolic 132–189; BP diastolic 81–95
[2017-08-27] MEDS: traMADol 50 MG TABLET PO PRN ×2 (05:48→14:08)
[2017-08-27] MEDS: IPRATRPIUM/ALBUTEROL 0.5/2.5MG 3 ML NEBU. NEB SCH ×3 (05:48→20:00)
[2017-08-27] MEDS: HEPARIN PF for SUB-Q USE 5,000 UNIT/0.5 ML VIAL. SQ SCH ×3 (05:49→21:36)
[2017-08-27 06:39] LABS: BASO # 0.1 x10^3/uL (0.0-0.2); BASO % 0 % (0-3); EOS # 0.1 x10^3/uL (0.0-0.7); EOS % 1 % (0-3); HEMATOCRIT 39.9 % (36.0-47.0); HEMOGLOBIN 13.1 g/dL (12.0-15.5); LYMPH # 5.5 x10^3/uL (1.0-4.8); LYMPH % 41 % (24-48); MEAN CORPUSCULAR HEMOGLOBIN 28 pg (25-35); MEAN CORPUSCULAR HGB CONC 33 g/dL (31-37); MEAN CORPUSCULAR VOLUME 85 fL (79-100); MONO # 1.1 x10^3/uL (0.0-1.1); MONO % 8 % (0-9); NEUT # 6.6 x10^3uL (1.8-7.7); NEUT % 49 % (31-73); PLATELET COUNT 302 x10^3/uL (140-400); RED BLOOD COUNT 4.69 x10^6/uL (3.50-5.40); RED CELL DISTRIBUTION WIDTH 13.7 % (11.5-14.5); WHITE BLOOD COUNT 13.4 x10^3/uL (4.0-11.0)
[2017-08-27 06:44] LABS: CALCIUM 9.1 mg/dL (8.5-10.1); CREATININE 0.8 mg/dL (0.6-1.0); POTASSIUM 3.4 mmol/L (3.5-5.1)
[2017-08-27] MEDS: traMADol 50 MG TABLET PO SCH ×2 (07:24→21:35)
[2017-08-27] MEDS: PARoxetine 20 MG TABLET PO SCH (08:28)
[2017-08-27] MEDS: MULTIVITAMIN with MINERAL TABLET. PO SCH (08:28)
[2017-08-27] MEDS: LACTOBACILLUS RHAMNOSUS GG 1 CAPSULE. PO SCH ×2 (08:28→21:34)
[2017-08-27] MEDS: POTASSIUM CHLORIDE 20 MEQ TABLET.ER. PO SCH ×2 (08:29→21:34)
[2017-08-27] MEDS: amLODIPine BESYLATE 10 MG TABLET PO SCH (08:31)
[2017-08-27] MEDS: INSULIN ASPART 300 UNITS/3 ML INSULN.PEN SQ SCH ×3 (08:34→17:12)
[2017-08-27] MEDS: AZITHROMYCIN 500 MG in IV NORMAL SALINE 250ML 250 ML IV SCH (09:48)
[2017-08-27] MEDS: cefTRIAXone IV Push 1 GM VIAL. IVP SCH (11:45)
[2017-08-27] MEDS: cloNIDine HCL 0.1 MG TABLET PO PRN (18:50)
[2017-08-27] MEDS: DONEPEZIL HCL 10 MG TABLET PO SCH (21:34)
[2017-08-27] MEDS: INSULIN DETEMIR 300 UNITS/3 ML INSULN.PEN. SQ SCH (21:52)
[2017-08-28] MEDS: HEPARIN PF for SUB-Q USE 5,000 UNIT/0.5 ML VIAL. SQ SCH ×3 (05:54→21:35)
[2017-08-28 06:00] VITALS: BP 154/81
[2017-08-28 06:28] LABS: BASO # 0.1 x10^3/uL (0.0-0.2); BASO % 1 % (0-3); EOS # 0.1 x10^3/uL (0.0-0.7); EOS % 1 % (0-3); HEMOGLOBIN 12.6 g/dL (12.0-15.5); LYMPH # 4.3 x10^3/uL (1.0-4.8); LYMPH % 36 % (24-48); MEAN CORPUSCULAR HEMOGLOBIN 28 pg (25-35); MEAN CORPUSCULAR HGB CONC 33 g/dL (31-37); MEAN CORPUSCULAR VOLUME 85 fL (79-100); MONO # 1.2 x10^3/uL (0.0-1.1); MONO % 10 % (0-9); NEUT # 6.2 x10^3uL (1.8-7.7); NEUT % 52 % (31-73); PLATELET COUNT 285 x10^3/uL (140-400); RED BLOOD COUNT 4.47 x10^6/uL (3.50-5.40); RED CELL DISTRIBUTION WIDTH 13.9 % (11.5-14.5); WHITE BLOOD COUNT 11.8 x10^3/uL (4.0-11.0)
[2017-08-28 06:32] LABS: CALCIUM 9.3 mg/dL (8.5-10.1); CREATININE 0.7 mg/dL (0.6-1.0); POTASSIUM 3.9 mmol/L (3.5-5.1)
[2017-08-28] MEDS: MULTIVITAMIN with MINERAL TABLET. PO SCH (09:19)
[2017-08-28] MEDS: traMADol 50 MG TABLET PO SCH ×2 (09:19→20:46)
[2017-08-28] MEDS: LACTOBACILLUS RHAMNOSUS GG 1 CAPSULE. PO SCH ×2 (09:19→20:44)
[2017-08-28] MEDS: amLODIPine BESYLATE 10 MG TABLET PO SCH (09:19)
[2017-08-28] MEDS: PARoxetine 20 MG TABLET PO SCH (09:19)
[2017-08-28] MEDS: POTASSIUM CHLORIDE 20 MEQ TABLET.ER. PO SCH ×2 (09:20→20:45)
[2017-08-28] MEDS: AZITHROMYCIN 500 MG in IV NORMAL SALINE 250ML 250 ML IV SCH (09:21)
[2017-08-28] MEDS: INSULIN ASPART 300 UNITS/3 ML INSULN.PEN SQ SCH ×3 (09:33→17:07)
[2017-08-28 12:33] VITALS: BP 131/72
[2017-08-28] MEDS: cefTRIAXone IV Push 1 GM VIAL. IVP SCH (12:40)
[2017-08-28 17:27] VITALS: BP 138/81
[2017-08-28 18:57] VITALS: BP 148/82
[2017-08-28] MEDS ORDERED: ALBUTEROL SULFATE 2.5 MG/3 ML NEBU. NEB PRN (20:00)
[2017-08-28] MEDS: DONEPEZIL HCL 10 MG TABLET PO SCH (20:44)
[2017-08-28] MEDS: INSULIN DETEMIR 300 UNITS/3 ML INSULN.PEN. SQ SCH (21:34)
--- NOTE | 2017-08-28 22:50 | PN ---
DATE: 08/28/2017 SUBJECTIVE: A 67-year-old female in with sepsis and fracture of her right humerus. The patient's blood cultures have been basically negative, but the patient's white count still slightly elevated. Her temperature has defervesced and initially was a low-grade temperature, but she is elderly, so would not expect go high, but she did have a pulse rate of 114. OBJECTIVE: VITAL SIGNS: Blood pressure 130/70, respiration rate 13, pulse 98, afebrile. GENERAL: The patient is alert and oriented. LUNGS: Diminished, but clear. CARDIOVASCULAR: Regular sinus rhythm, right arm basically in a sling. ABDOMEN: Soft. EXTREMITIES: No clubbing, no edema. PLAN: Because of her overall debilitated state, considering continue with IV antibiotic therapy for at least another 24 hours and then possibly discharge back to the nursing facility. KAYLAH ROBERTSON MD DR: ALECIA/yuriy JOB#: [id number] / [id number]
[2017-08-28 23:28] VITALS: BP 179/97
[2017-08-28] MEDS: cloNIDine HCL 0.1 MG TABLET PO PRN (23:39)
[2017-08-29 05:08] VITALS: BP 120/76
[2017-08-29] MEDS: HEPARIN PF for SUB-Q USE 5,000 UNIT/0.5 ML VIAL. SQ SCH (06:00)
[2017-08-29] MEDS: INSULIN ASPART 300 UNITS/3 ML INSULN.PEN SQ SCH (07:30)
[2017-08-29] MEDS ORDERED: DEXTROSE 50% 25 GM / 50ML DISP.SYRIN. IV ONE ×2 (07:46→08:00)
[2017-08-29] MEDS: LACTOBACILLUS RHAMNOSUS GG 1 CAPSULE. PO SCH (08:14)
[2017-08-29] MEDS: PARoxetine 20 MG TABLET PO SCH (08:14)
[2017-08-29] MEDS: traMADol 50 MG TABLET PO SCH (08:14)
[2017-08-29] MEDS: MULTIVITAMIN with MINERAL TABLET. PO SCH (08:14)
[2017-08-29] MEDS: POTASSIUM CHLORIDE 20 MEQ TABLET.ER. PO SCH (08:14)
[2017-08-29 08:15] VITALS: BP 120/76
[2017-08-29] MEDS: amLODIPine BESYLATE 10 MG TABLET PO SCH (08:15)
[2017-08-29] MEDS: AZITHROMYCIN 500 MG in IV NORMAL SALINE 250ML 250 ML IV SCH (10:00)
[2017-08-29] MEDS: cefTRIAXone IV Push 1 GM VIAL. IVP SCH (11:00)
== END 2017-08-29 11:19 | disposition home or self-care (01) | DRG 872 ==
LOC: ER 21:34 → ICU 08-26 01:32 → 1 SOUTH 08-28 15:52
PROVIDERS: ADMIT Family Medicine; ATTEND Family Medicine
DX: A41.9 Sepsis, unspecified organism (principal); N17.9 Acute kidney failure, unspecified; S42.201A Unspecified fracture of upper end of right humerus, initial encounter for closed fracture; F03.90 Unspecified dementia, unspecified severity, without behavioral disturbance, psychotic disturbance, mood disturbance, and anxiety; E11.9 Type 2 diabetes mellitus without complications; E78.00 Pure hypercholesterolemia, unspecified; I10 Essential (primary) hypertension; F32.9 Major depressive disorder, single episode, unspecified; W19.XXXA Unspecified fall, initial encounter; Y93.89 Activity, other specified; Y92.129 Unspecified place in nursing home as the place of occurrence of the external cause; Y99.8 Other external cause status; Z86.73 Personal history of transient ischemic attack (TIA), and cerebral infarction without residual deficits; Z90.710 Acquired absence of both cervix and uterus
CPT/HCPCS: 36415; 70450; 71045; 72170; 73060; 80048; 80053; 81001; 82947; 83605; 83880; 85007; 85025; 87040; 87641; 93005; 94640; 96374; J0456; J0696; J1815; J7050; J7620; 97530; 99285-25; J7030